=== PATIENT | male | born 1995 | race Caucasian/White ===

== ENCOUNTER 2020-01-09 13:53 | Emergency (ER) | payer OTHER ==
[2020-01-09 14:01] VITALS: BP 131/85; RESP 18; TEMP 98
[2020-01-09] MEDS ORDERED: LIDOCAINE 1% INJ 10MG/ML (20 ML MDV) SQ STA (14:15)
[2020-01-09] MEDS ORDERED: DIPH,PERTUS(ACELL)TETVAC-LF 0.5 ML VIAL IM ONE (14:15)
[2020-01-09] MEDS ORDERED: AMOXIC-POT CLAV 875MG STARTER PACK 2 TAB BTL PO STA (14:16)
--- NOTE | 2020-01-09 14:53 | ED ---
General Adult HPI - General Chief complaint: Wound/Laceration Stated complaint: dog bite Source: patient, RN notes reviewed Mode of arrival: ambulatory Limitations: no limitations - History of Present Illness Initial comments: 24-year-old male presents to the emergency department with multiple complaints. Patient states his dogs were fighting and he was trying to break them up. States he got bit on the left hand. Denies any difficulty moving fingers. Patient states that he was trying to separate the dogs using a plastic slide and he accidentally hit his face on the slide. He may have lost consciouness although he is unsure. He did not injure his teeth but did have a through and through lower lip laceration. He also hit his right eye. Denies any pain within the globe or any visual changes. Tetanus not up-to-date. Dogs were immunized for rabies.Patient has no other complaints at this time including shortness of breath, chest pain, abdominal pain, nausea or vomiting, headache, or visual changes. - Related Data Home Medications Medication Instructions Recorded Confirmed Albuterol Inhaler [Ventolin Hfa 2 puff INHALATION RT-BID 11/23/17 11/23/17 Inhaler] Previous Rx's Medication Instructions Recorded Ondansetron [Zofran ODT] 4 mg PO Q8HR PRN #10 tab 11/23/17 Amoxicillin/Potassium Clav 1 tab PO Q12HR #20 tab 01/09/20 [Augmentin 875-125 Tablet] Allergies Allergy/AdvReac Type Severity Reaction Status Date / Time No Known Allergies Allergy Verified 01/09/20 14:00 Review of Systems ROS Statement: Those systems with pertinent positive or pertinent negative responses have been documented in the HPI. ROS Other: All systems not noted in ROS Statement are negative. Past Medical History Past Medical History: No Reported History History of Any Multi-Drug Resistant Organisms: None Reported Past Surgical History: Tonsillectomy Past Psychological History: No Psychological Hx Reported Smoking Status: Current every day smoker Past Alcohol Use History: None Reported Past Drug Use History: None Reported General Exam Limitations: no limitations General appearance: alert, in no apparent distress Head exam: Present: atraumatic, normocephalic, normal inspection Eye exam: Present: PERRL, EOMI. Absent: scleral icterus, conjunctival injection, periorbital swelling (minimal R periorbital ecchymosis. patient able to open eye. globe appears within normal limits. patient denies visual changes. ) ENT exam: Present: normal exam, mucous membranes moist, TM's normal bilaterally, normal external ear exam. Absent: normal oropharynx (Patient has a 1 cm laceration on the right lower lip. This is through and through. Teeth appear unaffected.) Neck exam: Present: normal inspection, full ROM. Absent: tenderness, meningismus, lymphadenopathy Respiratory exam: Present: normal lung sounds bilaterally. Absent: respiratory distress, wheezes, rales, rhonchi, stridor Cardiovascular Exam: Present: regular rate, normal rhythm, normal heart sounds. Absent: systolic murmur, diastolic murmur, rubs, gallop, clicks Extremities exam: Present: other (Patient has 2 small lacerations noted to the dorsum of the left hand. These are superficial in nature. They are non-gaping. They dO not cross any tendon sites. Patient has full range of motion of the left hand. There is no evidence of foreign body. Radial pulses 2+.) Course Vital Signs 01/09/20 13:55 Temperature 98 F Pulse Rate 112 H Respiratory 18 Rate Blood Pressure 131/85 O2 Sat by Pulse 99 Oximetry Procedures - Laceration Laceration #1 Consent Obtained: verbal consent Indication: laceration Site: lip Size (cm): 1 Description: linear Depth: [id number] Anesthetic Used: lidocaine 1% Anesthesia Technique: nerve block Amount (mls): 2 Pre-repair: wound explored, irrigated extensively (With saline pressure irr igation) Type of Sutures: nylon (1), vicryl (1) Size of Sutures: 5-0 Number of Sutures: 2 Technique: simple, interrupted Patient Tolerated Procedure: well, no complications Medical Decision Making - Medical Decision Making 2 small superficial lacerations noted to the dorsum of the left hand from dog bite. These are small, non-gaping, no evident tendon involvement on thorough inspection. Full ROM of all digits. These were cleaned thoroughly with soap and water followed by saline pressure irrigation. No evidence for foreign body. X- ray of the left hand is negative. Patient was started on Augmentin and discussed strict return parameters including signs of infection. Tetanus is updated. Patient also cause a laceration to his lower lip when he accidentally hit himself with a slide as well as minimal right periorbital ecchymosis. He apparently may have lost consciousness although he is unsure. Laceration of lip is through and through. I did numb this with a mental block. Internal suture was applied to the right lower lip. Saline pressure irrigation was performed. Additional suture was applied to the skin layer. Patient will return in 5 days for external suture removal. Internal suture will dissolve on its own. CT brain is negative. CT orbits shows mild right periorbital swelling. There is some mild frontal scalp soft tissue swelling. He will follow up with primary xcare in 1-2 days for a recheck or return to the ER if he has any worsening symptoms. Disposition Clinical Impression: Lip laceration, Dog bite, Head injury Disposition: HOME SELF-CARE Condition: Good Instructions (If sedation given, give patient instructions): Laceration (ED), Animal Bite (ED) Additional Instructions: Take antibiotics as directed. Monitor for signs of infection of the left hand including drainage, redness, or streaking redness. Return if these occur. Re turn in 5 days for external suture removal from the lip. Otherwise follow-up with primary care. Prescriptions: Amoxicillin/Potassium Clav [Augmentin 875-125 Tablet] 1 tab PO Q12HR #20 tab Is patient prescribed a controlled substance at d/c from ED?: No Referrals: Moira Christensen MD [STAFF PHYSICIAN] - 1-2 days Time of Disposition: 15:21
--- NOTE | 2020-01-09 15:07 | CT ---
EXAMINATION TYPE: CT brain wo con DATE OF EXAM: 01/09/2020 COMPARISON: None HISTORY: Facial lacerations after injury CT DLP: 1215.4 mGycm Automated exposure control for dose reduction was used. Multiple axial sections were obtained of the brain without contrast. Ventricles have normal size. There is no mass effect nor midline shift. There is no sign of intracran ial hemorrhage. The calvarium is intact. There appears to be some mild frontal scalp soft tissue swel ling. Impression negative CT scan of the brain. Mild soft tissue swelling.
--- NOTE | 2020-01-09 15:08 | XR ---
EXAMINATION TYPE: XR hand complete LT DATE OF EXAM: 01/09/2020 COMPARISON: NONE HISTORY: Pain TECHNIQUE: 3 views FINDINGS: Metacarpals appear intact. I see no fracture nor dislocation. Joint spaces are normal. IMPRESSION: Negative left hand exam.
--- NOTE | 2020-01-09 15:24 | CT ---
EXAMINATION TYPE: CT orbits wo con DATE OF EXAM: 01/09/2020 COMPARISON: HISTORY: Facial lacerations after injury CT DLP: 1215.4 mGycm Automated exposure control for dose reduction was used. Multiple axial sections were obtained from the top of the frontal sinuses to the top of the maxilla w ithout contrast. Nasal bone appears intact. There is fairly normal aeration of the visualized paranasal sinuses. There is no evidence of a blowout fracture. There is minimal mucosal thickening in the maxillary sinuses. There is no evidence of retro-orbital mass. The bony orbits are intact. Temporal bones appear normal. There is soft tissue swelling over the lower aspect of the frontal bone extending to the right perior bital region. There is no soft tissue air. IMPRESSION: Mild frontal and right side periorbital soft tissue swelling. No fracture seen. Minimal maxillary sinus mucosal thickening.
[2020-01-09 15:40] VITALS: PULSE 95
== END 2020-01-09 15:40 | disposition home or self-care (01) ==
LOC: EC 13:53
DX: S01.511A Laceration without foreign body of lip, initial encounter (principal); S61.452A Open bite of left hand, initial encounter; S00.11XA Contusion of right eyelid and periocular area, initial encounter; F17.200 Nicotine dependence, unspecified, uncomplicated; Z23 Encounter for immunization; W54.0XXA Bitten by dog, initial encounter; W22.8XXA Striking against or struck by other objects, initial encounter; Y93.89 Activity, other specified; Y92.89 Other specified places as the place of occurrence of the external cause
CPT/HCPCS: 73130; 70450; 70480; 90715; 99283; 12011; 90471; J2001

== ENCOUNTER 2020-08-25 19:16 | Emergency (ER) | payer OTHER ==
[2020-08-25] MEDS ORDERED: ACETAMINOPHEN TAB 500 MG TAB PO STA (20:46)
[2020-08-25] MEDS ORDERED: IBUPROFEN 600 MG STARTER PACK 4 TAB BTL PO STA (20:46)
--- NOTE | 2020-08-25 21:26 | XR ---
EXAMINATION TYPE: XR chest 1V DATE OF EXAM: 08/25/2020 COMPARISON: NONE HISTORY: Cough TECHNIQUE: Single view FINDINGS: Heart and mediastinum are normal. Lungs are clear. Diaphragm is normal. Bony thorax appears normal. IMPRESSION: Normal chest.
--- NOTE | 2020-08-25 21:33 | ED ---
URI HPI - General Source: patient, RN notes reviewed, old records reviewed Mode of arrival: ambulatory Limitations: no limitations <Leonela Ibrahim - Last Filed: 08/26/20 10:47> <Tanesha Orellana - Last Filed: 09/02/20 00:33> - General Chief Complaint: Upper Respiratory Infection Stated Complaint: uri Time Seen by Provider: 08/25/20 20:21 - History of Present Illness Initial Comments: 25 year old male with 3 weeks of cough, congestion and runny nose. Pt arrives with fever today. Pt reports that he is a smoker and reports no significant productive cough. Pt denies abdominal pain, nausea, or vomiting. Reports possible exposure to covid. (Leonela Ibrahim) - Related Data Home Medications Medication Instructions Recorded Confirmed Albuterol Inhaler (Mhu) [Ventolin 2 puff INHALATION RT-BID 11/23/17 11/23/17 Hfa Inhaler] Previous Rx's Medication Instructions Recorded Ondansetron [Zofran ODT] 4 mg PO Q8HR PRN #10 tab 11/23/17 Amoxicillin/Potassium Clav 1 tab PO Q12HR #20 tab 01/09/20 [Augmentin 875-125 Tablet] Albuterol Inhaler [Ventolin Hfa 1 puff INHALATION TID #1 inhaler 08/25/20 Inhaler] Azithromycin [Zithromax] 0 mg PO DIRECTED #6 tab 08/25/20 methylPREDNISolone Dose Pack 4 mg PO DIRECTED #21 package 08/25/20 [Medrol Dose Pack] Allergies Allergy/AdvReac Type Severity Reaction Status Date / Time No Known Allergies Allergy Verified 08/25/20 19:32 Review of Systems ROS Other: All systems not noted in ROS Statement are negative. <Leonela Ibrahim - Last Filed: 08/26/20 10:47> ROS Other: All systems not noted in ROS Statement are negative. <Tanesha Orellana - Last Filed: 09/02/20 00:33> ROS Statement: Those systems with pertinent positive or pertinent negative responses have been documented in the HPI. Past Medical History Past Medical History: No Reported History History of Any Multi-Drug Resistant Organisms: None Reported Past Surgical History: Tonsillectomy Past Psychological History: No Psychological Hx Reported Smoking Status: Current every day smoker, Vaper Past Alcohol Use History: None Reported Past Drug Use History: Marijuana <Norahsonymary louLeonela - Last Filed: 08/26/20 10:47> General Exam Limitations: no limitations General appearance: alert, in no apparent distress Head exam: Present: atraumatic, normocephalic, normal inspection Eye exam: Present: normal appearance, PERRL, EOMI. Absent: scleral icterus, conjunctival injection, periorbital swelling ENT exam: Present: normal exam, mucous membranes moist Neck exam: Present: normal inspection. Absent: tenderness, meningismus, lymphadenopathy Respiratory exam: Present: normal lung sounds bilaterally, wheezes (minimal). Absent: respiratory distress, rales, rhonchi, stridor Cardiovascular Exam: Present: regular rate, normal rhythm, normal heart sounds. Absent: systolic murmur, diastolic murmur, rubs, gallop, clicks Neurological exam: Present: alert, oriented X3, CN II-XII intact Psychiatric exam: Present: normal affect, normal mood Skin exam: Present: warm, dry, intact, normal color. Absent: rash <Leonela Ibrahim - Last Filed: 08/26/20 10:47> - General Exam Comments Initial Comments: 25year old male, well appearing. no distress. (Leonela Ibrahim) Course Vital Signs 08/25/20 08/25/20 19:28 21:52 Temperature 100.0 F H 98.2 F Pulse Rate 85 87 Respiratory 20 18 Rate Blood Pressure 154/88 145/79 O2 Sat by Pulse 99 99 Oximetry Medical Decision Making - Radiology Data Radiology results: report reviewed <Asmita Ibrahimily - Last Filed: 08/26/20 10:47> <Tanesha Orellana - Last Filed: 09/02/20 00:33> - Medical Decision Making 25 year old male with cough, fever and congestion intermittent for 3 weeks. Pt is smoker. Discussed Rapid Covid is negative. Discussed CXR shows no pneumonia. Pt has bronchitis and due to length of symptoms will put pt on z-pack for atypical bacteria. Discussed return parameters. (Leonela Ibrahim) I was available for consultation in the emergency department. The history and physical exam were done by the midlevel provider. I was consulted for this patients care. I reviewed the case with the midlevel provider and based on their presentation of the patient, I agree with the assessment, medical decision making and plan of care as documented. Chart was dictated using [employer] dictation software. Attempts were made to correct any dictation errors however some typographical errors may persist. Patient was seen during a national state of emergency due to the Covid-19 pandemic. (Tanesha Orellana) - Lab Data Lab Results 08/25/20 Range/Units 21:03 Coronavirus (PCR) Not Detected (Not Detectd) - Radiology Data Normal CXR. (Leonela Ibrahim) Disposition Is patient prescribed a controlled substance at d/c from ED?: No Time of Disposition: 21:30 <Leonela Ibrahim - Last Filed: 08/26/20 10:47> <Tanesha Orellana - Last Filed: 09/02/20 00:33> Clinical Impression: URI (upper respiratory infection) Disposition: HOME SELF-CARE Condition: Good Instructions (If sedation given, give patient instructions): Upper Respiratory Infection (ED) Additional Instructions: Patient continue Motrin Tylenol for fever and pain. Take medications as prescribed. Follow-up with primary care doctor symptoms continue to persist or worsen. Prescriptions: methylPREDNISolone Dose Pack [Medrol Dose Pack] 4 mg PO DIRECTED #21 package Albuterol Inhaler [Ventolin Hfa Inhaler] 1 puff INHALATION TID #1 inhaler Azithromycin [Zithromax] 0 mg PO DIRECTED #6 tab Referrals: None,Stated [Primary Care Provider] - 1-2 days Ciro Yeh MD [REFERRING] - 1-2 days
[2020-08-25] MEDS ORDERED: AZITHROMYCIN 500 MG TAB PO STA (21:38)
[2020-08-25] MEDS ORDERED: predniSONE 50 MG TAB PO STA (21:38)
[2020-08-25 21:54] VITALS: BP 145/79; PULSE 87; RESP 18; TEMP 98.2
== END 2020-08-25 21:53 | disposition home or self-care (01) ==
LOC: EC 19:16
DX: J06.9 Acute upper respiratory infection, unspecified (principal); F17.290 Nicotine dependence, other tobacco product, uncomplicated; Z90.89 Acquired absence of other organs; Z20.828 Contact with and (suspected) exposure to other viral communicable diseases
CPT/HCPCS: 87635; 71045; 99284; J7512

== ENCOUNTER 2020-09-19 22:22 | Emergency (ER) | payer OTHER ==
[2020-09-19 22:27] VITALS: TEMP 99.2
[2020-09-19] MEDS ORDERED: KETOROLAC 15 MG/ML 1 ML VIAL IVP STA (22:41)
[2020-09-19] MEDS ORDERED: SODIUM CHLORIDE 0.9% 1,000 ML IV ONE (22:41)
--- NOTE | 2020-09-19 22:45 | ED ---
General Adult HPI - General Chief complaint: Chest Pain Stated complaint: Revisit Chest Pain Time Seen by Provider: 09/19/20 22:31 Source: patient Mode of arrival: ambulatory Limitations: no limitations - History of Present Illness Initial comments: 25-year-old male patient presents to the emergency department today for evaluation of left-sided chest pain. Patient states that he was seen and evaluated on 08/25/2020 for similar type symptoms. States he was given azithromycin, steroids, he did completely dosing of both of these and states she is not feeling any better. States his cough is somewhat improved. States he does still have left-sided chest pain a daily basis. States the pain is at its worse he does have left arm heaviness states he can't lift it up to drive his car. Denies any dizziness or weakness. States that his breathing is more shallow. Denies any known fever or chills. He did test negative for occult blood at the beginning of this month. Patient denies any recent rash, abdominal pain, nausea, vomiting, diarrhea, constipation, back pain, numbness, tingling, dizziness, weakness, hematuria, dysuria, urinary urgency, urinary frequency, headache, visual changes, or any other complaints. - Related Data Home Medications Medication Instructions Recorded Confirmed Albuterol Inhaler (Mhu) [Ventolin 2 puff INHALATION RT-BID 11/23/17 11/23/17 Hfa Inhaler] Previous Rx's Medication Instructions Recorded Ondansetron [Zofran ODT] 4 mg PO Q8HR PRN #10 tab 11/23/17 Amoxicillin/Potassium Clav 1 tab PO Q12HR #20 tab 01/09/20 [Augmentin 875-125 Tablet] Albuterol Inhaler [Ventolin Hfa 1 puff INHALATION TID #1 inhaler 08/25/20 Inhaler] Azithromycin [Zithromax] 0 mg PO DIRECTED #6 tab 08/25/20 methylPREDNISolone Dose Pack 4 mg PO DIRECTED #21 package 08/25/20 [Medrol Dose Pack] Allergies Allergy/AdvReac Type Severity Reaction Status Date / Time No Known Allergies Allergy Verified 09/19/20 22:27 Review of Systems ROS Statement: Those systems with pertinent positive or pertinent negative responses have been documented in the HPI. ROS Other: All systems not noted in ROS Statement are negative. Past Medical History Past Medical History: No Reported History History of Any Multi-Drug Resistant Organisms: None Reported Past Surgical History: Tonsillectomy Past Psychological History: No Psychological Hx Reported Smoking Status: Vaper Past Alcohol Use History: None Reported Past Drug Use History: Marijuana General Exam Limitations: no limitations General appearance: alert, in no apparent distress, other (This is a well- developed, well-nourished, adult male patient in no acute distress. Vital signs upon presentation are temperature 99.2F, pulse 89, respirations 18, blood pressure 146/91, pulse ox 99% on room air.) ENT exam: Present: normal exam, normal oropharynx, mucous membranes moist Respiratory exam: Present: normal lung sounds bilaterally. Absent: respiratory distress, wheezes, rales, rhonchi, stridor Cardiovascular Exam: Present: regular rate, normal rhythm, normal heart sounds. Absent: systolic murmur, diastolic murmur, rubs, gallop, clicks GI/Abdominal exam: Present: soft, normal bowel sounds. Absent: distended, tenderness, guarding, rebound, rigid Neurological exam: Present: alert, oriented X3, CN II-XII intact Psychiatric exam: Present: normal affect, normal mood Skin exam: Present: warm, dry, intact, normal color. Absent: rash Course Vital Signs 09/19/20 22:25 Temperature 99.2 F Pulse Rate 89 Respiratory 18 Rate Blood Pressure 146/91 O2 Sat by Pulse 99 Oximetry EKG Findings - EKG Comments: EKG Findings:: EKG obtained at 2235 shows normal sinus rhythm with sinus arrhythmia, there is evidence for early re-pole. Ventricular rate is 79, UT interval 142, QRS duration 84, QT 368, QTC 421. No evidence of ST elevation or depression. Medical Decision Making - Medical Decision Making 25-year-old male patient presents to the emergency department today for evaluation of left-sided chest pain, arm heaviness, and shortness of breath. Physical examination reveals clear equal lung sounds. His neurologically intact with no focal deficits. Labs reviewed and revealed normal white blood cell count. Normal troponin. Normal d-dimer. Chest x-ray showed no acute cardi opulmonary process. EKG was normal. I did discuss findings and results with the patient. Be discharged follow up with his primary care physician for recheck in 1-2 days. Return parameters were discussed in detail. He verbalizes understanding and agrees with this plan. - Lab Data Result diagrams: 09/19/20 22:41 09/19/20 22:41 Lab Results 09/19/20 09/19/20 09/19/20 Range/Units 22:41 22:41 22:41 WBC 12.0 H (3.8-10.6) k/uL RBC 5.30 (4.30-5.90) m/uL Hgb 16.4 (13.0-17.5) gm/dL Hct 48.2 (39.0-53.0) % MCV 91.0 (80.0-100.0) fL MCH 30.9 (25.0-35.0) pg MCHC 34.0 (31.0-37.0) g/dL RDW 12.1 (11.5-15.5) % Plt Count 251 (150-450) k/uL MPV 7.0 Neutrophils % 61 % Lymphocytes % 30 % Monocytes % 5 % Eosinophils % 2 % Basophils % 1 % Neutrophils # 7.3 (1.3-7.7) k/uL Lymphocytes # 3.6 (1.0-4.8) k/uL Monocytes # 0.6 (0-1.0) k/uL Eosinophils # 0.2 (0-0.7) k/uL Basophils # 0.1 (0-0.2) k/uL D-Dimer <0.17 (<0.60) mg/L FEU Sodium 137 (137-145) mmol/L Potassium 4.4 (3.5-5.1) mmol/L Chloride 105 (98-107) mmol/L Carbon Dioxide 24 (22-30) mmol/L Anion Gap 8 mmol/L BUN 14 (9-20) mg/dL Creatinine 0.91 (0.66-1.25) mg/dL Est GFR (CKD-EPI)AfAm >90 (>60 ml/min/1.73 sqM) Est GFR (CKD-EPI)NonAf >90 (>60 ml/min/1.73 sqM) Glucose 96 (74-99) mg/dL Calcium 9.7 (8.4-10.2) mg/dL Total Bilirubin 0.4 (0.2-1.3) mg/dL AST 29 (17-59) U/L ALT 20 (4-49) U/L Alkaline Phosphatase 62 (38-126) U/L Troponin I (0.000-0.034) ng/mL Total Protein 7.4 (6.3-8.2) g/dL Albumin 4.8 (3.5-5.0) g/dL 09/19/20 Range/Units 22:41 WBC (3.8-10.6) k/uL RBC (4.30-5.90) m/uL Hgb (13.0-17.5) gm/dL Hct (39.0-53.0) % MCV (80.0-100.0) fL MCH (25.0-35.0) pg MCHC (31.0-37.0) g/dL RDW (11.5-15.5) % Plt Count (150-450) k/uL MPV Neutrophils % % Lymphocytes % % Monocytes % % Eosinophils % % Basophils % % Neutrophils # (1.3-7.7) k/uL Lymphocytes # (1.0-4.8) k/uL Monocytes # (0-1.0) k/uL Eosinophils # (0-0.7) k/uL Basophils # (0-0.2) k/uL D-Dimer (<0.60) mg/L FEU Sodium (137-145) mmol/L Potassium (3.5-5.1) mmol/L Chloride (98-107) mmol/L Carbon Dioxide (22-30) mmol/L Anion Gap mmol/L BUN (9-20) mg/dL Creatinine (0.66-1.25) mg/dL Est GFR (CKD-EPI)AfAm (>60 ml/min/1.73 sqM) Est GFR (CKD-EPI)NonAf (>60 ml/min/1.73 sqM) Glucose (74-99) mg/dL Calcium (8.4-10.2) mg/dL Total Bilirubin (0.2-1.3) mg/dL AST (17-59) U/L ALT (4-49) U/L Alkaline Phosphatase (38-126) U/L Troponin I <0.012 (0.000-0.034) ng/mL Total Protein (6.3-8.2) g/dL Albumin (3.5-5.0) g/dL - Radiology Data Radiology results: report reviewed, image reviewed Two-view x-ray of the chest is obtained. Report was reviewed in its entirety. Impression by Dr. Dodd shows normal chest. No change. Disposition Clinical Impression: Chest pain, Shortness of breath Disposition: HOME SELF-CARE Condition: Good Instructions (If sedation given, give patient instructions): Chest Pain (ED), Shortness of Breath (ED) Additional Instructions: Follow-up through primary care physician for recheck in 1-2 days. Return to the emergency department immediately for any new, worsening, or concerning symptoms. Is patient prescribed a controlled substance at d/c from ED?: No Referrals: Ciro Yeh MD [REFERRING] - 1-2 days Time of Disposition: 23:46
[2020-09-19 23:12] LABS: Basophils # (A) 0.1 k/uL (0-0.2); Basophils % (A) 1 %; Eosinophils # (A) 0.2 k/uL (0-0.7); Eosinophils % (A) 2 %; HCT 48.2 % (39.0-53.0); HGB 16.4 gm/dL (13.0-17.5); Lymphocytes # (A) 3.6 k/uL (1.0-4.8); Lymphocytes % (A) 30 %; MCH 30.9 pg (25.0-35.0); Monocytes # (A) 0.6 k/uL (0-1.0); Monocytes % (A) 5 %; Neutrophils # (A) 7.3 k/uL (1.3-7.7); Neutrophils % (A) 61 %; Platelet Count 251 k/uL (150-450); RDW 12.1 % (11.5-15.5)
[2020-09-19 23:20] LABS: ALT 20 U/L (4-49); AST 29 U/L (17-59); African American GFR (CKD) >90 (>60 ml/min/1.73 sqM); Albumin 4.8 g/dL (3.5-5.0); Alkaline Phosphatase 62 U/L (38-126); Anion Gap 8 mmol/L; Blood Urea Nitrogen 14 mg/dL (9-20); Calcium 9.7 mg/dL (8.4-10.2); Carbon Dioxide 24 mmol/L (22-30); Chloride 105 mmol/L (98-107); Glucose 96 mg/dL (74-99); Non-African American GFR(CKD) >90 (>60 ml/min/1.73 sqM); Potassium 4.4 mmol/L (3.5-5.1); Sodium 137 mmol/L (137-145); Total Bilirubin 0.4 mg/dL (0.2-1.3); Total Protein 7.4 g/dL (6.3-8.2)
--- NOTE | 2020-09-19 23:20 | XR ---
EXAMINATION TYPE: XR chest 2V DATE OF EXAM: 09/19/2020 COMPARISON: 08/25/2020 HISTORY: Chest pain TECHNIQUE: 2 views FINDINGS: Heart and mediastinum are normal. Lungs are clear. Diaphragm is normal. Bony thorax appears normal. IMPRESSION: Normal chest. No change.
[2020-09-19 23:53] VITALS: BP 121/76; PULSE 58; RESP 16
== END 2020-09-19 23:55 | disposition home or self-care (01) ==
LOC: EC 22:22
DX: R07.9 Chest pain, unspecified (principal); R06.02 Shortness of breath; F17.290 Nicotine dependence, other tobacco product, uncomplicated
CPT/HCPCS: 36415; 93005; 85379; 80053; 84484; 85025; 71046; 99285; 96374; J1885

== ENCOUNTER 2021-06-15 08:51 | Emergency (ER) | payer OTHER ==
[2021-06-15 08:56] VITALS: TEMP 98.1
--- NOTE | 2021-06-15 09:10 | ED ---
Chest Pain HPI - General Chief Complaint: Chest Pain Stated Complaint: Chest pain Time Seen by Provider: 06/15/21 09:04 Source: patient, RN notes reviewed Mode of arrival: ambulatory Limitations: no limitations - History of Present Illness Initial Comments: This is a 25-year-old male presents emergency Department chief complaint of left-sided chest wall pain. 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 Patient states she is at work throwing some trash when he started having pain in his muscle. Patient states that his work advised him come emergency department. Patient states otherwise he would not be here. Denies any current symptoms. He states it is only with movement denies any shortness of breath no fevers chills no cough or cold like symptoms. - Related Data Home Medications Medication Instructions Recorded Confirmed Ibuprofen [Motrin Ib] 800 mg PO Q8H PRN 06/15/21 06/15/21 Allergies Allergy/AdvReac Type Severity Reaction Status Date / Time No Known Allergies Allergy Verified 06/15/21 09:24 Review of Systems ROS Statement: Those systems with pertinent positive or pertinent negative responses have been documented in the HPI. ROS Other: All systems not noted in ROS Statement are negative. EKG Findings - EKG Comments: EKG Findings:: EKG performed at 8:40 normal sinus rhythm rate of 73 [place] 184 QRS 98 QT/QTC 384/423 Past Medical History Past Medical History: No Reported History History of Any Multi-Drug Resistant Organisms: None Reported Past Surgical History: Tonsillectomy Additional Past Surgical History / Comment(s): Tumor in his chest. Past Psychological History: No Psychological Hx Reported Smoking Status: Vaper Past Alcohol Use History: None Reported Past Drug Use History: Marijuana General Exam Limitations: no limitations General appearance: alert, in no apparent distress Head exam: Present: atraumatic, normocephalic, normal inspection Eye exam: Present: normal appearance, PERRL, EOMI. Absent: scleral icterus, conjunctival injection, periorbital swelling Neck exam: Present: normal inspection, full ROM. Absent: tenderness, meningismus, lymphadenopathy Respiratory exam: Present: normal lung sounds bilaterally, chest wall tenderness. Absent: respiratory distress, wheezes, rales, rhonchi, stridor Cardiovascular Exam: Present: regular rate, normal rhythm, normal heart sounds. Absent: systolic murmur, diastolic murmur, rubs, gallop, clicks GI/Abdominal exam: Present: soft, normal bowel sounds. Absent: distended, tenderness, guarding, rebound, rigid Neurological exam: Present: alert, oriented X3, CN II-XII intact Course Vital Signs 06/15/21 08:53 Temperature 98.1 F Pulse Rate 84 Respiratory 20 Rate Blood Pressure 132/75 O2 Sat by Pulse 99 Oximetry Chest Pain MDM - MDM 25-year-old male presented for chest wall pain. Patient is reproducible chest wall pain. He's had this in the past he is asymptomatic time EKG and neck strain unremarkable. Disposition Clinical Impression: Chest wall pain Disposition: HOME SELF-CARE Condition: Stable Instructions (If sedation given, give patient instructions): Chest Wall Pain (ED) Additional Instructions: Please return to the Emergency Department if symptoms worsen or any other concerns. Is patient prescribed a controlled substance at d/c from ED?: No Referrals: Marilia Peter MD [Primary Care Provider] - 1-2 days Time of Disposition: 09:53
--- NOTE | 2021-06-15 09:37 | XR ---
EXAMINATION TYPE: XR chest 2V DATE OF EXAM: 06/15/2021 COMPARISON: 09/19/2020 TECHNIQUE: PA and lateral views submitted. HISTORY: Pain FINDINGS: The lungs are clear and there is no pneumothorax, pleural effusion, or focal pneumonia. Heart size normal. No overt failure. IMPRESSION: 1. No acute process.
[2021-06-15 10:09] VITALS: BP 127/82; PULSE 71; RESP 18
== END 2021-06-15 10:08 | disposition home or self-care (01) ==
LOC: EC 08:51
DX: R07.89 Other chest pain (principal); F17.290 Nicotine dependence, other tobacco product, uncomplicated; F12.90 Cannabis use, unspecified, uncomplicated
CPT/HCPCS: 71046; 93005; 99285

== ENCOUNTER 2021-10-02 06:22 | Emergency (ER) | payer OTHER ==
[2021-10-02 06:38] VITALS: BP 120/82; PULSE 82; RESP 18; TEMP 98.9
--- NOTE | 2021-10-02 07:07 | ED ---
General Adult HPI - General Chief complaint: Upper Respiratory Infection Stated complaint: Chest Pressure, Covid+ Time Seen by Provider: 10/02/21 06:39 Source: patient, RN notes reviewed Mode of arrival: ambulatory Limitations: no limitations - History of Present Illness Initial comments: Patient is a 26-year-old male presented to the emergency room today with a chief complaint of cough, congestion, body aches over the last 5 days. Patient does admit that he had a positive COVID-19 test. Patient denies any shortness of breath. He denies any other complaints or any other symptoms at this time. Patient denies any recent fever, chills, shortness of breath, chest pain, back pain, abdominal pain, nausea or vomiting, numbness or tingling, dysuria or hematuria, constipation or diarrhea, visual changes, or any other complaints. - Related Data Home Medications Medication Instructions Recorded Confirmed Ibuprofen [Motrin Ib] 800 mg PO Q8H PRN 06/15/21 06/15/21 Allergies Allergy/AdvReac Type Severity Reaction Status Date / Time No Known Allergies Allergy Verified 10/02/21 06:37 Review of Systems ROS Statement: Those systems with pertinent positive or pertinent negative responses have been documented in the HPI. ROS Other: All systems not noted in ROS Statement are negative. 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 Past Psychological History: No Psychological Hx Reported Smoking Status: Current every day smoker, Vaper Past Alcohol Use History: Rare Past Drug Use History: Marijuana General Exam - General Exam Comments Initial Comments: General: The patient is awake and alert, in no distress, and does not appear acutely ill. Eye: Pupils are equal, round and reactive to light, extra-ocular movements are intact. There is normal conjunctiva bilaterally. No signs of icterus. Ears, nose, mouth and throat: There are moist mucous membranes and no oral lesions. Neck: The neck is supple, there is no tenderness or JVD. Respiratory: Lungs are clear to auscultation, respirations are non-labored, breath sounds are equal. No wheezes, stridor, rales, or rhonchi. Musculoskeletal: Normal ROM, no tenderness. Strength 5/5. Sensation intact. Pulses equal bilaterally 2+. Neurological: A&O x 3. CN II-XII intact, There are no obvious motor or sensory deficits. Coordination appears grossly intact. Speech is normal. Skin: Skin is warm and dry and no rashes or lesions are noted. Psychiatric: Cooperative, appropriate mood & affect, normal judgment. Limitations: no limitations Course Vital Signs 10/02/21 06:34 Temperature 98.9 F Pulse Rate 82 Respiratory 18 Rate Blood Pressure 120/82 O2 Sat by Pulse 99 Oximetry Medical Decision Making - Medical Decision Making Patient's vitals are stable here in emergency room. He is diagnosed COVID-19 w ith a previous positive test. Vitals have been stable here in emergency room. After pulse oximeter 99%. Was discussed with patient about myocardial antibodies as he does meet because of PMI. Patient has declined. Patient will be discharged home is advised return to the emergency room symptoms increase worsen or for any other concerns. He states understanding and is currently. Disposition Clinical Impression: COVID-19 Disposition: HOME SELF-CARE Condition: Good Instructions (If sedation given, give patient instructions): Coronavirus Disease 2019 (COVID-19) Additional Instructions: Please continue Tylenol/ibuprofen for pain/ fever Control. Follow up with family doctor return here to the emergency room symptoms increase worsen or for any other concerns. Is patient prescribed a controlled substance at d/c from ED?: No Referrals: Marilia Peter MD [Primary Care Provider] - 1-2 days Time of Disposition: 07:15
== END 2021-10-02 07:49 | disposition home or self-care (01) ==
LOC: EC 06:22
DX: U07.1 COVID-19 (principal); F17.200 Nicotine dependence, unspecified, uncomplicated; F12.90 Cannabis use, unspecified, uncomplicated
CPT/HCPCS: 99283

== ENCOUNTER 2021-11-05 15:55 | Emergency (ER) | payer OTHER ==
[2021-11-05 16:47] VITALS: BP 101/65; PULSE 60; RESP 20; TEMP 98
[2021-11-05 17:06] LABS: Amorphous Sediment,Urine Rare /hpf; Appearance,Urine Cloudy (Clear); Bilirubin,Urine Negative (Negative); Blood,Urine Negative (Negative); Color,Urine Light Yellow; Glucose,Urine (UA) Negative (Negative); Ketones,Urine Negative (Negative); Leukocyte Esterase,Urine Small (Negative); Mucus,Urine Rare /hpf; Nitrite,Urine Negative (Negative); PH, Urine 7.5 (5.0-8.0); Protein,Urine Negative (Negative); Specific Gravity,Urine 1.008 (1.001-1.035); Urobilinogen,Urine <2.0 mg/dL (<2.0); WBC,Urine 10 /hpf (0-5)
--- NOTE | 2021-11-05 17:24 | XR ---
EXAMINATION TYPE: XR KUB DATE OF EXAM: 11/05/2021 COMPARISON: 09/23/2014 HISTORY: Abdominal pain TECHNIQUE: 2 view FINDINGS: 2 views upright were obtained and show no sign of intestinal obstruction or pneumoperitoneu m. Fecal pattern is normal. There is no evidence of a mass. Lung bases are clear. There are no pathol ogic calcifications. IMPRESSION: Nonacute abdomen. No change.
[2021-11-05 17:44] LABS: Basophils % (A) 1 %; Eosinophils # (A) 0.1 k/uL (0-0.7); Eosinophils % (A) 2 %; HCT 48.7 % (39.0-53.0); HGB 16.4 gm/dL (13.0-17.5); Lymphocytes # (A) 1.8 k/uL (1.0-4.8); Lymphocytes % (A) 29 %; MCH 31.7 pg (25.0-35.0); MCHC 33.6 g/dL (31.0-37.0); MCV 94.3 fL (80.0-100.0); Mean Platelet Volume 7.2; Monocytes # (A) 0.4 k/uL (0-1.0); Monocytes % (A) 6 %; Neutrophils # (A) 3.9 k/uL (1.3-7.7); Neutrophils % (A) 61 %; Platelet Count 232 k/uL (150-450); RBC 5.16 m/uL (4.30-5.90); WBC 6.4 k/uL (3.8-10.6)
[2021-11-05 17:51] LABS: ALT 29 U/L (4-49); AST 33 U/L (17-59); African American GFR (CKD) >90 (>60 ml/min/1.73 sqM); Albumin 4.2 g/dL (3.5-5.0); Alkaline Phosphatase 65 U/L (38-126); Amylase 157 U/L (30-110); Anion Gap 6 mmol/L; Blood Urea Nitrogen 10 mg/dL (9-20); Calcium 9.2 mg/dL (8.4-10.2); Carbon Dioxide 28 mmol/L (22-30); Chloride 106 mmol/L (98-107); Glucose 94 mg/dL (74-99); Lipase 345 U/L (23-300); Non-African American GFR(CKD) >90 (>60 ml/min/1.73 sqM); Potassium 4.4 mmol/L (3.5-5.1); Sodium 140 mmol/L (137-145); Total Bilirubin 0.3 mg/dL (0.2-1.3); Total Protein 6.6 g/dL (6.3-8.2)
[2021-11-05] MEDS ORDERED: cefTRIAXone 250 MG VIAL IM STA (19:15)
[2021-11-05] MEDS ORDERED: DOXYCYCLINE 100 MG CAP PO STA (19:16)
[2021-11-05] MEDS ORDERED: metroNIDAZOLE 500 MG TAB PO STA (19:27)
--- NOTE | 2021-11-05 19:27 | ED ---
General Adult HPI - General Chief complaint: Abdominal Pain Stated complaint: Abdominal Pain Time Seen by Provider: 11/05/21 18:53 Source: patient, RN notes reviewed, old records reviewed Mode of arrival: ambulatory Limitations: no limitations - History of Present Illness Initial comments: Patient is a 26-year-old male with past medical history remarkable for marijuana use who presents with a Department complaining of lower abdominal pain. States is been on-and-off again for 3-4 weeks. Describes it as an achy, pressure-like sensation that we will migrate around his lower abdomen. It is not associated with any specific activity or movement. Denies any dysuria, hematuria. Denies any changes in stooling, or bloody stools. Denies any nausea or vomiting. Denies any testicular pain. States he does have a history of unprotected sex over the last few weeks to months. It is possible he has an STD. Denies any testicular pain, urethral discharge. Denies any lesions on his penis. His no history of STDs. His no other acute complaints at this time. Workup was started in triage and I evaluated the patient when he was placed in a room. De nies any chest pain, now presents for symptoms, fevers, chills. Has no other acute complaints at this time.Denies any current abdominal pain. - Related Data Home Medications Medication Instructions Recorded Confirmed Ibuprofen [Motrin Ib] 800 mg PO Q8H PRN 06/15/21 06/15/21 Previous Rx's Medication Instructions Recorded Doxycycline Hyclate 100 mg PO BID 7 Days #14 tab 11/05/21 Allergies Allergy/AdvReac Type Severity Reaction Status Date / Time No Known Allergies Allergy Verified 11/05/21 16:45 Review of Systems ROS Statement: Those systems with pertinent positive or pertinent negative responses have been documented in the HPI. Review of Systems: CONST: Denies fever EYES: Denies blurry vision ENT: Denies nasal congestion C/V: Denies Chest pain RESP: Denies shortness of breath GI: Denies abdominal pain : Denies dysuria SKIN: Denies rash. MSK: Denies joint pain. NEURO: Denies headache ROS Other: All systems not noted in ROS Statement are negative. 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 Past Psychological History: No Psychological Hx Reported Smoking Status: Current every day smoker, Vaper Past Alcohol Use History: Rare Past Drug Use History: None Reported, Marijuana General Exam - General Exam Comments Initial Comments: General: Appears in no acute distress. HEAD: Normal with no signs of head trauma. EYES: PERRLA, EOMI, conjunctiva normal, no discharge. ENT: Hearing grossly intact, normal oropharynx. RESPIRATORY: Clear breath sounds bilaterally. No wheezes, rales, or rhonchi. C/V: Regular rate and rhythm. S1 and S2 auscultated, no edema, peripheral pulses 2+ and intact throughout ABD: Abd is soft, nontender, nondistended. There is no guarding. No peritoneal signs, no rebound tenderness. EXT: Normal range of motion, no obvious deformity SKIN: No rashes or lesions observed on exposed skin. : No penile lesions. No testicular tenderness, no urethral discharge. NEURO: Alert and oriented x4 Limitations: no limitations Course Vital Signs 11/05/21 16:45 Temperature 98.0 F Pulse Rate 60 Respiratory 20 Rate Blood Pressure 101/65 O2 Sat by Pulse 97 Oximetry Medical Decision Making - Medical Decision Making Based on the patient's presentation and physical exam, I'm concerned for possible intra-abdominal process for his current symptoms. He is currently asymptomatic. Cannot rule out the possibility of STDs at this time. Abdominal laboratory studies, urinalysis, as well as an abdominal x-ray were all ordered prior to my evaluation. There were all within normal limits except for mild lipase and amylase elevations. However he has no epigastric abdominal discomfort, all discomfort is in the lower abdomen, however he is asymptomatic at this time. Urinalysis is relatively unremarkable. There are 10 wbc's, nicole rai no nitrite. X-ray revealed no acute process. On reevaluation, patient remains is symptomatic. We did discuss the option of obtaining CT images, however as the patient is symptomatic at this time, as a relatively normal laboratory study workup, I do believe it is low yield. Currently, we decided not to obtain CT imaging at this time. He will Return if he gets worse.I did offer STD swabs which he accepted. These were obtained and sent. We'll also be empirically treated with 500 mg of Flagyl, 500 mg of IM Rocephin, as well as doxycycline 100 mg. He will be given a prescription for doxycycline 100 mg twice a day for 7 days. He was in agreement this plan. We discussed results of his laboratory studies and imaging and I recommended follow-up with PCP. He was in agreement this plan. He is tolerating oral intake, and is a symptomatic at this time. Patient will be discharged home in good condition. I will provide the patient with a prescription for doxycycline 100 mg twice a day for 7 days. I instructed the patient to follow up with their PCP in the next 3 days. . I explained that the patient should return to the emergency department if they experience any worsening symptoms. Strict return precautions were discussed with the patient. The patient expressed understanding of these instructions. I answered all questions that the patient had. The patient was di scharged home in good condition with their prescriptions and follow up information. - Lab Data Result diagrams: 11/05/21 17:32 11/05/21 17:32 Lab Results 11/05/21 11/05/21 11/05/21 Range/Units 16:51 17:32 17:32 WBC 6.4 (3.8-10.6) k/uL RBC 5.16 (4.30-5.90) m/uL Hgb 16.4 (13.0-17.5) gm/dL Hct 48.7 (39.0-53.0) % MCV 94.3 (80.0-100.0) fL MCH 31.7 (25.0-35.0) pg MCHC 33.6 (31.0-37.0) g/dL RDW 13.0 (11.5-15.5) % Plt Count 232 (150-450) k/uL MPV 7.2 Neutrophils % 61 % Lymphocytes % 29 % Monocytes % 6 % Eosinophils % 2 % Basophils % 1 % Neutrophils # 3.9 (1.3-7.7) k/uL Lymphocytes # 1.8 (1.0-4.8) k/uL Monocytes # 0.4 (0-1.0) k/uL Eosinophils # 0.1 (0-0.7) k/uL Basophils # 0.0 (0-0.2) k/uL Sodium 140 (137-145) mmol/L Potassium 4.4 (3.5-5.1) mmol/L Chloride 106 (98-107) mmol/L Carbon Dioxide 28 (22-30) mmol/L Anion Gap 6 mmol/L BUN 10 (9-20) mg/dL Creatinine 0.86 (0.66-1.25) mg/dL Est GFR (CKD-EPI)AfAm >90 (>60 ml/min/1.73 sqM) Est GFR (CKD-EPI)NonAf >90 (>60 ml/min/1.73 sqM) Glucose 94 (74-99) mg/dL Calcium 9.2 (8.4-10.2) mg/dL Total Bilirubin 0.3 (0.2-1.3) mg/dL AST 33 (17-59) U/L ALT 29 (4-49) U/L Alkaline Phosphatase 65 (38-126) U/L Total Protein 6.6 (6.3-8.2) g/dL Albumin 4.2 (3.5-5.0) g/dL Amylase 157 H (30-110) U/L Lipase 345 H (23-300) U/L Urine Color Light Yellow Urine Appearance Cloudy (Clear) Urine pH 7.5 (5.0-8.0) Ur Specific [place] 1.008 (1.001-1.035) Urine Protein Negative (Negative) Urine Glucose (UA) Negative (Negative) Urine Ketones Negative (Negative) Urine Blood Negative (Negative) Urine Nitrite Negative (Negative) Urine Bilirubin Negative (Negative) Urine Urobilinogen <2.0 (<2.0) mg/dL Ur Leukocyte Esterase Small H (Negative) Urine WBC 10 H (0-5) /hpf Amorphous Sediment Rare H (None) /hpf Urine Mucus Rare H (None) /hpf Disposition Clinical Impression: Abdominal pain, Concern about STD in male without diagnosis Disposition: HOME SELF-CARE Condition: Good Instructions (If sedation given, give patient instructions): Sexually Transmitted Diseases (ED), Condom Use (ED), Safe Sex (ED), Abdominal Pain (ED) Prescriptions: Doxycycline Hyclate 100 mg PO BID 7 Days #14 tab Is patient prescribed a controlled substance at d/c from ED?: No Referrals: Marilia Peter MD [Primary Care Provider] - 1-2 days
[2021-11-06 15:42] LABS: C. trachomatis,PCR Negative (Neg,Equiv); Chlamydia trachomatis Source Genital; N. gonorrhoeae,PCR Negative (Neg,Equiv); Neisseria Source Genital
== END 2021-11-05 19:48 | disposition home or self-care (01) ==
LOC: EC 15:55
DX: R10.30 Lower abdominal pain, unspecified (principal); F17.200 Nicotine dependence, unspecified, uncomplicated; F12.90 Cannabis use, unspecified, uncomplicated; Z72.89 Other problems related to lifestyle
CPT/HCPCS: 36415; 80053; 82150; 83690; 85025; 81001; 87491; 87591; 74018; 99284; 96372; J0696

== ENCOUNTER 2022-05-07 21:49 | Emergency (ER) | payer OTHER ==
[2022-05-07 22:14] VITALS: RESP 18; TEMP 97.9
[2022-05-07] MEDS ORDERED: PROPARACAINE 0.5% OPHTH DROPS 15 ML BTL RIGHT EYE STA (22:31)
[2022-05-07] MEDS ORDERED: FLUORESCEIN STRIPS 1 MG STRIP RIGHT EYE ONE ×2 (22:32→23:24)
--- NOTE | 2022-05-07 23:17 | ED ---
Eye Problem HPI - General Chief complaint: Eye Problems Stated complaint: Foreign object right eye Time Seen by Provider: 05/07/22 22:27 Source: patient Mode of arrival: ambulatory Limitations: no limitations - History of Present Illness Initial comments: Patient is a 26-year-old male presenting with chief complaint of right eye pain. Patient states upon waking this morning his eye was painful, swollen, watering, red. He had blurry vision throughout the day. He denies any woodworking or metal work that may cause foreign body. He denies foreign body sensation. He does wear contact lenses, he is not wearing contact lenses at this time. He denies headache, fever, chills, neck pain, discharge, pain with eye movements, nausea, vomiting. - Related Data Home Medications Medication Instructions Recorded Confirmed Ibuprofen [Motrin Ib] 800 mg PO Q8H PRN 06/15/21 06/15/21 Previous Rx's Medication Instructions Recorded Doxycycline Hyclate 100 mg PO BID 7 Days #14 tab 11/05/21 Levofloxacin 0.5% Ophth Soln 2 drop RIGHT EYE Q3-4H 5 Days #5 ml 05/08/22 [Quixin Ophth Soln] Allergies Allergy/AdvReac Type Severity Reaction Status Date / Time No Known Allergies Allergy Verified 05/07/22 22:15 Review of Systems ROS Statement: Those systems with pertinent positive or pertinent negative responses have been documented in the HPI. ROS Other: All systems not noted in ROS Statement are negative. 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 Past Psychological History: No Psychological Hx Reported Smoking Status: Current every day smoker, Vaper Past Alcohol Use History: Rare Past Drug Use History: None Reported, Marijuana General Exam Limitations: no limitations General appearance: alert, in no apparent distress Head exam: Present: atraumatic, normocephalic, normal inspection Eye exam: Present: PERRL, EOMI, conjunctival injection, periorbital swelling. Absent: scleral icterus, periorbital tenderness Expanded Eyelids: Swelling: Right Sclera/Conjunctival: Injection: Right Neck exam: Present: normal inspection Neurological exam: Present: alert, oriented X3, CN II-XII intact Psychiatric exam: Present: normal affect, normal mood Skin exam: Present: warm, dry, intact, normal color. Absent: rash Course Vital Signs 05/07/22 05/08/22 22:10 00:00 Temperature 97.9 F Pulse Rate 79 71 Respiratory 18 Rate Blood Pressure 155/100 141/85 O2 Sat by Pulse 99 Oximetry Medical Decision Making - Medical Decision Making Patient is a 26-year-old male, contact lens wearer, presenting with chief complaint of right eye redness, swelling, watering, discomfort. Started upon awakening this morning. On examination eyelids are somewhat swollen, and ice watering. Proparacaine eyedrops applied, patient reports great improvement in discomfort. There is some scleral injection. On Wood's lamp examination no obvious corneal abrasion or foreign body seen. Slit-lamp examination shows no obvious foreign body. No foreign body seen on eversion of the eyelid. Considering patient is presenting as a corneal abrasion, we will treat him as such. Patient is given levofloxacin eyedrops and instructed to follow-up with PCP and ophthalmology. Report back to ER with any new or worsening symptoms. I discussed return parameters answered all questions. Patient conveyed verbal understanding and agreed to the plan. My attending is Dr. Turner. Disposition Clinical Impression: Corneal abrasion Disposition: HOME SELF-CARE Condition: Good Instructions (If sedation given, give patient instructions): Abrasion (ED) Additional Instructions: Follow-up with PCP and ophthalmology in one to 2 days. Report back to ER with any new or worsening symptoms. Apply 2 eye drops every 4 hours to the affected eye for 5 days. Prescriptions: Levofloxacin 0.5% Ophth Soln [Quixin Ophth Soln] 2 drop RIGHT EYE Q3-4H 5 Days #5 ml Is patient prescribed a controlled substance at d/c from ED?: No Referrals: Marilia Peter MD [Primary Care Provider] - 1-2 days Sergio Garcia MD [STAFF PHYSICIAN] - 1-2 days Time of Disposition: 23:58
[2022-05-08] MEDS ORDERED: LEVOFLOXACIN 0.5% OPHTH DROPS 5 ML BTL RIGHT EYE SCH
[2022-05-08 00:25] VITALS: BP 141/85; PULSE 71
== END 2022-05-08 00:25 | disposition home or self-care (01) ==
LOC: EC 21:49
DX: S05.01XA Injury of conjunctiva and corneal abrasion without foreign body, right eye, initial encounter (principal); F17.290 Nicotine dependence, other tobacco product, uncomplicated; X58.XXXA Exposure to other specified factors, initial encounter
CPT/HCPCS: 99283

== ENCOUNTER 2023-04-10 05:25 | Emergency (ER) | payer BC, OTHER ==
[2023-04-10 05:32] VITALS: TEMP 97.5
[2023-04-10] MEDS ORDERED: ACETAMINOPHEN TAB 325 MG TAB PO STA (06:12)
--- NOTE | 2023-04-10 06:21 | ED ---
General Adult HPI - General Chief complaint: Neck Pain/Injury Stated complaint: Shooting pain all over Time Seen by Provider: 04/10/23 06:00 Source: patient, RN notes reviewed Mode of arrival: ambulatory Limitations: no limitations - History of Present Illness Initial comments: Pt is a 27 year old male presenting to the ER with a chief complaint of left sided neck, upper and lower extremity pain. Pt states the pain started on Friday,04/05/23, when he turned his head to the right quickly. He describes the pain as snappy. Since he has been experiencing upper and lower extremity pain which is exacerbated with movement. Denies parenthesis. He states he has been taking OTC Advil, tylenol, motrin, Naprosyn and salonpas with slight relief. Pt does admit to a fever of 101.2 F on Friday and chills. Denies prior or recent injuries to his neck or back. Denies bladder or bowel incontience, IV drug use, or any current medications. - Related Data Home Medications Medication Instructions Recorded Confirmed Ibuprofen [Motrin Ib] 800 mg PO Q8H PRN 06/15/21 06/15/21 Previous Rx's Medication Instructions Recorded Doxycycline Hyclate 100 mg PO BID 7 Days #14 tab 11/05/21 Levofloxacin 0.5% Ophth Soln 2 drop RIGHT EYE Q3-4H 5 Days #5 ml 05/08/22 [Quixin Ophth Soln] Cyclobenzaprine [Flexeril] 10 mg PO TID PRN #15 tab 04/10/23 Ibuprofen [Motrin] 600 mg PO Q8HR PRN #20 tab 04/10/23 Allergies Allergy/AdvReac Type Severity Reaction Status Date / Time No Known Allergies Allergy Verified 04/10/23 05:29 Review of Systems ROS Statement: Those systems with pertinent positive or pertinent negative responses have been documented in the HPI. ROS Other: All systems not noted in ROS Statement are negative. 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 Past Psychological History: No Psychological Hx Reported Smoking Status: Current every day smoker, Vaper Past Alcohol Use History: Rare Past Drug Use History: None Reported, Marijuana General Exam Limitations: no limitations General appearance: alert, in no apparent distress Neck exam: Present: normal inspection, tenderness (left trapezius ), full ROM. Absent: meningismus, lymphadenopathy Respiratory exam: Present: normal lung sounds bilaterally. Absent: respiratory distress, wheezes, rales, rhonchi, stridor Cardiovascular Exam: Present: regular rate, normal rhythm, normal heart sounds. Absent: systolic murmur, diastolic murmur, rubs, gallop, clicks Back exam: Present: normal inspection, other (negative stright leg test bilaterally ) Course Vital Signs 04/10/23 04/10/23 05:29 06:39 Temperature 97.5 F L Pulse Rate 84 65 Respiratory 16 18 Rate Blood Pressure 142/84 118/67 O2 Sat by Pulse 98 99 Oximetry Medical Decision Making - Medical Decision Making Was pt. sent in by a medical professional or institution (, PA, DOOR LINER, urgent care, hospital, or senior care...) When possible be specific @ -No Did you speak to anyone other than the patient for history (EMS, parent, family, police, friend...)? What history was obtained from this source @ -No Did you review nursing and triage notes (agree or disagree)? Why? @ -I reviewed and agree with nursing and triage notes Were old charts reviewed (outside hosp., previous admission, EMS record, old EKG, old radiological studies, urgent care reports/EKG's, senior care records)? Report findings @ -No old charts were reviewed Differential Diagnosis (chest pain, altered mental status, abdominal pain women, abdominal pain men, vaginal bleeding, weakness, fever, dyspnea, syncope, headache, dizziness, GI bleed, back pain, seizure, CVA, palpatations, mental health, musculoskeletal)? @ -Torticollis, cervical strain, muscle spasm, low back pain, low back strain] EKG interpreted by me (3pts min.). @ -None X-rays interpreted by me (1pt min.). @ -X-rays cervical spine shows loss of normal curvature, straightening no osseus lesions X-ray lumbar spine no acute fracture dislocation X-ray shoulder no acute fracture dislocation CT interpreted by me (1pt min.). @ -None done U/S interpreted by me (1pt. min.). @ -None done What testing was considered but not performed or refused? (CT, X-rays, U/S, labs)? Why? @ -None What meds were considered but not given or refused? Why? @ -None Did you discuss the management of the patient with other professionals (professionals i.e. , PA, DOOR LINER, lab, RT, psych nurse, psychiatric social worker supervisor, fire prevention research engineer, teacher, intelligence officer basic, watch case polisher)? Give summary @ -No Was smoking cessation discussed for >3mins.? @ -No Was critical care preformed (if so, how long)? @ -No Were there social determinants of health that impacted care today? How? (Homelessness, low income, unemployed, alcoholism, drug addiction, transportation, low edu. Level, literacy, decrease access to med. care, fpc, rehab)? @ -No Was there de-escalation of care discussed even if they declined (Discuss DNR or withdrawal of care, Hospice)? DNR status @ -No What co-morbidities impacted this encounter? (DM, HTN, Smoking, COPD, CAD, Cancer, CVA, ARF, Chemo, Hep., AIDS, mental health diagnosis, sleep apnea, morbid obesity)? @ -None Was patient admitted / discharged? Hospital course, mention meds given and route, prescriptions, significant lab abnormalities, going to OR and other pertinent info. @ -Discharge patient has notable spasms, straightening of his normal cervical curvature. Patient was started on Flexeril continue anti-inflammatories gentle stretching, heat and ice as directed. Undiagnosed new problem with uncertain prognosis? @ -No Drug Therapy requiring intensive monitoring for toxicity (Heparin, Nitro, Insulin, Cardizem)? @ -No Were any procedures done? @ -No Diagnosis/symptom? @ -Cervical muscle spasm Acute, or Chronic, or Acute on Chronic? @ -Acute Uncomplicated (without systemic symptoms) or Complicated (systemic symptoms)? @ -Uncomplicated Side effects of treatment? @ -No Exacerbation, Progression, or Severe Exacerbation? @ -No Poses a threat to life or bodily function? How? (Chest pain, [place], [place], pneumonia, PE, COPD, DKA, ARF, appy, cholecystitis, CVA, Diverticulitis, Homicidal, Suicidal, threat to staff... and all critical care pts) @ -No Disposition Clinical Impression: Trapezius muscle spasm, Neck pain, Back pain Disposition: HOME SELF-CARE Condition: Stable Instructions (If sedation given, give patient instructions): Spasmodic Torticollis (ED) Additional Instructions: Please return to the Emergency Department if symptoms worsen or any other concerns. Prescriptions: Cyclobenzaprine [Flexeril] 10 mg PO TID PRN #15 tab PRN Reason: Muscle Spasm Ibuprofen [Motrin] 600 mg PO Q8HR PRN #20 tab PRN Reason: Pain Is patient prescribed a controlled substance at d/c from ED?: No Referrals: Nonstaff,Physician [Primary Care Provider] - 1-2 days Time of Disposition: 07:27
[2023-04-10 06:42] VITALS: RESP 18
--- NOTE | 2023-04-10 07:21 | XR ---
EXAMINATION TYPE: XR cervical spine comp DATE OF EXAM: 04/10/2023 COMPARISON: None HISTORY: 27-year-old male pain TECHNIQUE: 5 views FINDINGS: No predental space widening or prevertebral soft tissue swelling. Straightening of the normal cervica l lordosis. Preserved alignment. Disc spaces are also maintained. No significant bony neuroforaminal narrowing on either side. Normal odontoid view. IMPRESSION: Straightening of the normal cervical lordosis could be positional or due to muscle spasm. Otherwise, no specific radiographic abnormality seen.
--- NOTE | 2023-04-10 07:22 | XR ---
EXAMINATION TYPE: XR shoulder complete 3 views LT, XR lumbar spine 3V DATE OF EXAM: 04/10/2023 Comparison: None Clinical History: 27-year-old male pain Findings: Left shoulder: AC joint appears congruent and intact. Subacromial space is preserved. No tendinous or bursal calcifi cations. No acute fracture, subluxation, or dislocation. Lumbar spine: 5 lumbar type vertebral bodies. Vertebral body heights and disc interspaces are maintained. Alignment is preserved. Impression: Left shoulder and lumbar spine without acute osseous abnormality seen.
[2023-04-10 07:56] VITALS: BP 116/77; PULSE 76
== END 2023-04-10 07:59 | disposition home or self-care (01) ==
LOC: EC 05:25
DX: S62.172A Displaced fracture of trapezium [larger multangular], left wrist, initial encounter for closed fracture (principal); F17.290 Nicotine dependence, other tobacco product, uncomplicated; F12.90 Cannabis use, unspecified, uncomplicated; X58.XXXA Exposure to other specified factors, initial encounter
CPT/HCPCS: 72050; 72100; 99283

== ENCOUNTER 2024-02-17 21:53 | Emergency (ER) | payer BC ==
--- NOTE | 2024-02-17 22:08 | ED ---
Chest Pain HPI - General Source: patient Mode of arrival: ambulatory <Maxim Neumann - Last Filed: 02/17/24 22:08> - General Source: patient, RN notes reviewed, old records reviewed <Maksim Gallo - Last Filed: 02/18/24 03:44> - General Chief Complaint: Chest Pain Stated Complaint: Chest Pain,Sob Time Seen by Provider: 02/17/24 22:00 - History of Present Illness Initial Comments: 28-year-old male presents to the ED with complaints of chest pain with associated shortness of breath onset earlier today. Pain is intermittent in nature. Pain affects the middle of his chest. Pain does not radiate. Also reports that when pain occurs he has [id number] in bilateral hands. No associated diaphoresis or nausea or vomiting. (Maxim Neumann) Patient is a 28-year-old male who presents emergency department with chest pain that is intermittent, starting at 3 PM. Does have a significant history of anxiety. No cardiac history. Has experienced this pain in the past as well. Currently is asymptomatic when I evaluated the patient. He had some shortness of breath with it earlier as well. He has some paresthesias in the hands when it occurs as well. No diaphoresis. No radiation. No nausea or vomiting. Presents for further evaluation. Originally seen as a quick note. I evaluated patient after workup was completed in a hallway bed. (Maksim Gallo) - Related Data Home Medications Medication Instructions Recorded Confirmed Ibuprofen [Motrin Ib] 800 mg PO Q8H PRN 06/15/21 06/15/21 Previous Rx's Medication Instructions Recorded Doxycycline Hyclate 100 mg PO BID 7 Days #14 tab 11/05/21 Levofloxacin 0.5% Ophth Soln 2 drop RIGHT EYE Q3-4H 5 Days #5 ml 05/08/22 [Quixin Ophth Soln] Cyclobenzaprine [Flexeril] 10 mg PO TID PRN #15 tab 04/10/23 Ibuprofen [Motrin] 600 mg PO Q8HR PRN #20 tab 04/10/23 Allergies Allergy/AdvReac Type Severity Reaction Status Date / Time No Known Allergies Allergy Verified 02/17/24 21:59 Review of Systems ROS Other: All systems not noted in ROS Statement are negative. <Maxim Neumann - Last Filed: 02/17/24 22:08> ROS Other: All systems not noted in ROS Statement are negative. <Maksim Gallo - Last Filed: 02/18/24 03:44> ROS Statement: Those systems with pertinent positive or pertinent negative responses have been documented in the HPI. Review of Systems: CONST: Denies fever EYES: Denies blurry vision ENT: Denies nasal congestion C/V: Denies Chest pain RESP: Denies shortness of breath GI: Denies abdominal pain : Denies dysuria SKIN: Denies rash. MSK: Denies joint pain. NEURO: Denies headache (Maksim Gallo) EKG Findings - EKG Comments: EKG Findings:: 12-lead Electrocardiogram Interpretation Note. EKG was reviewed and interpreted by myself. 12-lead ECG performed at 2204 is interpreted by me as revealing normal sinus rhythm at a rate of 80 beats per minute. Whitmer is normal. RI interval is 132 ms, QRS duration is 90 ms, QTc is 374 ms. Slightly elevated J-point elevation throughout which is chronic compared to prior EKGs.. There were no ST or T wave abnormalities to suggest myocardial ischemia or injury. R wave progression across the precordium was satisfactory. By my interpretation this EKG is non-diagnostic for acute ischemia. 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 Past Psychological History: No Psychological Hx Reported, ADD/ADHD Smoking Status: Current every day smoker, Vaper Past Alcohol Use History: Rare Past Drug Use History: None Reported, Marijuana <Maxim Neumann - Last Filed: 02/17/24 22:08> General Exam <Maxim Neumann - Last Filed: 02/17/24 22:08> <Maksim Gallo - Last Filed: 02/18/24 03:44> - General Exam Comments Initial Comments: Visual Physical Exam Vital signs reviewed General: Well-appearing, nontoxic, no acute distress. Head: Normocephalic, atraumatic Eyes: PERRLA, EOMI ENT: Airway patent Chest: Nonlabored breathing Skin: No visual rash, normal skin tone Neuro: Alert and oriented 3 Musculoskeletal: No gross abnormalities (Maxim Neumann) General: Appears in no acute distress. HEAD: Normal with no signs of head trauma. EYES: PERRLA, EOMI, conjunctiva normal, no discharge. ENT: Hearing grossly intact, normal oropharynx. RESPIRATORY: Clear breath sounds bilaterally. No wheezes, rales, or rhonchi. C/V: Regular rate and rhythm. S1 and S2 auscultated, no edema, peripheral pulses 2+ and intact throughout. Chest pain reproducible on palpation. ABD: Abd is soft, nontender, nondistended EXT: Normal range of motion, no obvious deformity SKIN: No rashes or lesions observed on exposed skin. NEURO: Alert and oriented x 4. (Maksim Gallo) Course Vital Signs 02/17/24 02/18/24 21:55 00:34 Temperature 98.3 F 97.4 F L Pulse Rate 85 64 Respiratory 18 15 Rate Blood Pressure 160/88 123/80 O2 Sat by Pulse 97 97 Oximetry Chest Pain MDM <Maxim Neumann - Last Filed: 02/17/24 22:08> <Maksim Gallo - Last Filed: 02/18/24 03:44> - MDM Quicknote portion performed. Signed Maxim Neumann PA-C (Maxim Neumann) Was pt. sent in by a medical professional or institution ([facility], HOME MORTGAGE DISCLOSURE ACT SPECIALIST, urgent care, hospital, or senior care...) When possible be specific @ -No Did you speak to anyone other than the patient for history (EMS, parent, family, police, friend...)? What history was obtained from this source @ -No Did you review nursing and triage notes (agree or disagree)? Why? @ -I reviewed and agree with nursing and triage notes Were old charts reviewed (outside hosp., previous admission, EMS record, old EKG, old radiological studies, urgent care reports/EKG's, senior care records)? Report findings @ -Old charts reviewed Differential Diagnosis (chest pain, altered mental status, abdominal pain women, abdominal pain men, vaginal bleeding, weakness, fever, dyspnea, syncope, headache, dizziness, GI bleed, back pain, seizure, CVA, palpatations, mental health, musculoskeletal)? @ -Differential Chest Pain: Stable Angina, Unstable Angina, STEMI, NSTEMI Aortic Dissection, Pneumothorax, Musculoskeletal, Esophageal Spasm GERD, Cholecystitis, Pancreatitis, Zoster, this is not meant to be an all-inclusive list. EKG interpreted by me (3pts min.). @ -As above X-rays interpreted by me (1pt min.). @ -X-ray reveals no obvious acute cardiopulmonary process. CT interpreted by me (1pt min.). @ -None done U/S interpreted by me (1pt. min.). @ -None done What testing was considered but not performed or refused? (CT, X-rays, U/S, labs)? Why? @ -I did offer a second troponin however patient declined and would like to go home. What meds were considered but not given or refused? Why? @ -None Did you discuss the management of the patient with other professionals (professionals i.e. , PA, HOME MORTGAGE DISCLOSURE ACT SPECIALIST, lab, RT, psych nurse, social services specialist, printer's assistant, teacher, district fire management officer, rn case management)? Give summary @ -No Was smoking cessation discussed for >3mins.? @ -No Was critical care preformed (if so, how long)? @ -No Were there social determinants of health that impacted care today? How? (Homelessness, low income, unemployed, alcoholism, drug addiction, transportation, low edu. Level, literacy, decrease access to med. care, [facility], rehab)? @ -No Was there de-escalation of care discussed even if they declined (Discuss DNR or withdrawal of care, Hospice)? DNR status @ -No What co-morbidities impacted this encounter? (DM, HTN, Smoking, COPD, CAD, Cancer, CVA, ARF, Chemo, Hep., AIDS, mental health diagnosis, sleep apnea, morbid obesity)? @ -Anxiety Was patient admitted / discharged? Hospital course, mention meds given and route, prescriptions, significant lab abnormalities, going to OR and other pertinent info. @ -Patient presents with atypical chest pain which seems to be chest wall pain or anxiety related. Has a history of this. Currently has no symptoms. Vital signs are within acceptable limits. Workup completed while patient was in triage as a quick note was remarkable for an undetectable troponin. Remainder the labs unremarkable. EKG shows no signs of acute ischemia. Chest x-ray unremarkable. Vital signs within acceptable limits. I discussed results with patient. I did offer a second troponin at this time however he declines. We also discussed possible of observation which was declined as well. I believe this is reasonable as he is currently asymptomatic, with atypical symptoms that seem to be more chest wall pain related or anxiety related. Patient will be given a dose of Ativan as well as ibuprofen prior to discharge. Strict return precautions discussed. Patient was in agreement this plan. Heart score is low. I instructed the patient to follow up with their PCP in the next 1-3 days. I explained that the patient should return to the emergency department if they experience any worsening symptoms. Strict return precautions were discussed with the patient. The patient expressed understanding of these instructions. I answered all questions that the patient had. The patient was discharged home in good condition with their prescriptions and follow up information. Undiagnosed new problem with uncertain prognosis? @ -No Drug Therapy requiring intensive monitoring for toxicity (Heparin, Nitro, Insulin, Cardizem)? @ -No Were any procedures done? @ -No Diagnosis/symptom? @ -Chest wall pain, anxiety, atypical chest pain Acute, or Chronic, or Acute on Chronic? @ -Acute Uncomplicated (without systemic symptoms) or Complicated (systemic symptoms)? @ -Uncomplicated Side effects of treatment? @ -No Exacerbation, Progression, or Severe Exacerbation? @ -No Poses a threat to life or bodily function? How? (Chest pain, [place], [place], pneumonia, PE, COPD, DKA, ARF, appy, cholecystitis, CVA, Diverticulitis, Homicidal, Suicidal, threat to staff... and all critical care pts) @ -Unlikely (Maksim Gallo) Disposition <Maxim Neumann - Last Filed: 02/17/24 22:08> Is patient prescribed a controlled substance at d/c from ED?: No Time of Disposition: 00:21 <Maksim Gallo - Last Filed: 02/18/24 03:44> Clinical Impression: Atypical chest pain, Anxiety, Chest wall pain Disposition: HOME SELF-CARE Condition: Good Instructions (If sedation given, give patient instructions): Chest Wall Pain (ED) Referrals: None,Stated [Primary Care Provider] - 1-2 days Forms: Area PCPs
[2024-02-17 22:31] LABS: Basophils % (A) 1 %; Eosinophils # (A) 0.1 k/uL (0-0.7); Eosinophils % (A) 1 %; HCT 46.3 % (39.0-53.0); HGB 15.7 gm/dL (13.0-17.5); Lymphocytes # (A) 2.9 k/uL (1.0-4.8); Lymphocytes % (A) 37 %; MCHC 33.9 g/dL (31.0-37.0); MCV 88.5 fL (80.0-100.0); Mean Platelet Volume 7.6; Monocytes # (A) 0.5 k/uL (0-1.0); Monocytes % (A) 6 %; Neutrophils # (A) 4.1 k/uL (1.3-7.7); Neutrophils % (A) 53 %; Platelet Count 284 k/uL (150-450); RBC 5.23 m/uL (4.30-5.90); RDW 12.3 % (11.5-15.5); WBC 7.7 k/uL (3.8-10.6)
[2024-02-17 22:38] LABS: ALT 18 U/L (4-49); AST 26 U/L (17-59); African American GFR (CKD) >90 (>60 ml/min/1.73 sqM); Alkaline Phosphatase 78 U/L (38-126); Anion Gap 9 mmol/L; Blood Urea Nitrogen 12 mg/dL (9-20); Calcium 11.2 mg/dL (8.4-10.2); Carbon Dioxide 23 mmol/L (22-30); Chloride 107 mmol/L (98-107); Glucose 109 mg/dL (74-99); Magnesium 1.8 mg/dL (1.6-2.3); Non-African American GFR(CKD) >90 (>60 ml/min/1.73 sqM); Sodium 139 mmol/L (137-145); Total Bilirubin 0.6 mg/dL (0.2-1.3); Total Protein 7.6 g/dL (6.3-8.2)
[2024-02-17 23:07] LABS: Prothrombin Time 11.3 sec (10.0-12.5)
--- NOTE | 2024-02-17 23:43 | XR ---
EXAM: XR Chest, 2 Views CLINICAL HISTORY: ITS.REASON XR Reason: Chest Pain TECHNIQUE: Frontal and lateral views of the chest. COMPARISON: No relevant prior studies available. FINDINGS: Lungs: Unremarkable. No consolidation. Pleural space: Unremarkable. No pneumothorax. Heart: Unremarkable. No cardiomegaly. Mediastinum: Unremarkable. Normal mediastinal contour. Bones/joints: Unremarkable. No acute fracture. IMPRESSION: Normal chest x-rays.
[2024-02-18] MEDS: LORazepam 0.5 MG TAB PO STA (00:29)
[2024-02-18] MEDS: IBUPROFEN 800 MG TAB PO STA (00:29)
[2024-02-18 00:48] VITALS: BP 123/80; PULSE 64; RESP 15; TEMP 97.4
== END 2024-02-18 00:34 | disposition home or self-care (01) ==
LOC: EC 21:53
DX: R07.89 Other chest pain (principal); F41.9 Anxiety disorder, unspecified; F17.290 Nicotine dependence, other tobacco product, uncomplicated; F12.90 Cannabis use, unspecified, uncomplicated
CPT/HCPCS: 36415; 71046; 80053; 83735; 84484; 85025; 85610; 85730; 93005; 99285

== ENCOUNTER 2024-06-24 22:10 | Emergency (ER) | payer BC ==
[2024-06-24 22:28] VITALS: RESP 20; TEMP 98.1
[2024-06-24 22:55] LABS: Appearance,Urine Clear (Clear); Bilirubin,Urine Negative (Negative); Blood,Urine Negative (Negative); Color,Urine Colorless; Glucose,Urine (UA) Negative (Negative); Ketones,Urine Negative (Negative); Leukocyte Esterase,Urine Negative (Negative); Nitrite,Urine Negative (Negative); Protein,Urine Negative (Negative); Specific Gravity,Urine 1.006 (1.001-1.035); Urobilinogen,Urine <2.0 mg/dL (<2.0)
--- NOTE | 2024-06-24 23:08 | ED ---
Male Urogenital HPI - General Chief complaint: Urogenital Stated complaint: Lower ABD Pain Time Seen by Provider: 06/24/24 22:34 Source: patient, RN notes reviewed Mode of arrival: ambulatory Limitations: no limitations - History of Present Illness Initial comments: This is a 28-year-old male who presents to the emergency department for pelvic pain. Reports concern for pain in the perineal region over the last few days that make it painful to sit down. Denies any pain in the testicles. He has noted some clear penile discharge. States that there is concern for possible STD exposure. He was tested a few months ago due to similar symptoms and was negative. States that sometimes he feels like he has difficulty urinating. Denies any burning with urination. Denies any history of STDs in the past. - Related Data Home Medications Medication Instructions Recorded Confirmed Ibuprofen [Motrin Ib] 800 mg PO Q8H PRN 06/15/21 06/15/21 Previous Rx's Medication Instructions Recorded RX: Doxycycline Hyclate 100 mg PO BID 7 Days #14 tab 11/05/21 RX: Levofloxacin 0.5% Ophth Soln 2 drop RIGHT EYE Q3-4H 5 Days #5 ml 05/08/22 [Quixin Ophth Soln] Cyclobenzaprine [Flexeril] 10 mg PO TID PRN #15 tab 04/10/23 RX: Ibuprofen [Motrin] 600 mg PO Q8HR PRN #20 tab 04/10/23 RX: Doxycycline Hyclate 100 mg PO BID 10 Days #20 tab 06/24/24 Allergies Allergy/AdvReac Type Severity Reaction Status Date / Time No Known Allergies Allergy Verified 02/17/24 21:59 Review of Systems ROS Statement: Those systems with pertinent positive or pertinent negative responses have been documented in the HPI. ROS Other: All systems not noted in ROS Statement are negative. 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 Past Psychological History: No Psychological Hx Reported, ADD/ADHD Smoking Status: Current every day smoker, Vaper Past Alcohol Use History: Rare Past Drug Use History: Marijuana General Exam Limitations: no limitations General appearance: alert, in no apparent distress Head exam: Present: atraumatic, normocephalic, normal inspection Respiratory exam: Present: normal lung sounds bilaterally. Absent: respiratory distress, wheezes, rales, rhonchi, stridor Cardiovascular Exam: Present: regular rate, normal rhythm, normal heart sounds. Absent: systolic murmur, diastolic murmur, rubs, gallop, clicks Neurological exam: Present: alert, oriented X3, CN II-XII intact Psychiatric exam: Present: normal affect, normal mood Skin exam: Present: warm, dry, intact, normal color. Absent: rash Course Vital Signs 06/24/24 06/24/24 22:26 23:25 Temperature 98.1 F Pulse Rate 117 H 99 Respiratory 20 20 Rate Blood Pressure 191/98 123/76 O2 Sat by Pulse 99 98 Oximetry Medical Decision Making - Medical Decision Making This is a 28 year old male who presents to the emergency department for pelvic pain. Was pt. sent in by a medical professional or institution? @ -No Did you speak to anyone other than the patient for history? @ -No Did you review nursing and triage notes? @ -Yes, and I agree, it is accurate with regards to the patient's symptoms. Were old charts reviewed? @ -No Differential Diagnosis? @ -Differential Pelvic Pain: UTI, STI, prostatitis, this is not meant to be an all-inclusive list. EKG interpreted by me (3pts min.)? @ -Not obtained X-rays interpreted by me (1pt min.)? @ -Not obtained CT interpreted by me (1pt min.)? @ -Not obtained U/S interpreted by me (1pt. min.)? @ -Not obtained What testing was considered but not performed? (CT, X-rays, U/S, labs)? Why? @ -I did offer further testing with imaging such as a CT scan of the abdomen/pelvis or ultrasound due to the patient's level discomfort, however he declined. What meds were considered but not given? Why? @ -None Did you discuss the management of the patient with other professionals? @ -No Did you reconcile home meds? @ -No Was smoking cessation discussed for >3mins.? @ -No Was critical care preformed (if so, how long)? @ -No Were there social determinants of health that impacted care today? How? (Homelessness, low income, unemployed, alcoholism, drug addiction, transportation, low edu. Level, literacy, decrease access to med. care, long term, rehab)? @ -No Was there de-escalation of care discussed even if they declined? (Discuss DNR or withdrawal of care, Hospice)? @ -No What co-morbidities impacted this encounter? (DM, HTN, Smoking, COPD, CAD, Cancer, CVA, Hep., AIDS, mental health diagnosis, sleep apnea, morbid obesity)? @ -None Was patient admitted / discharged? @ -Discharged. Urinalysis negative for infection. Gonorrhea and Chlamydia te sting ordered with results pending at the time of discharge. I did offer further testing with imaging such as an ultrasound or a CT scan due to the level of discomfort, however patient declined. States that he would like to be treated for possible STDs and be discharged home. IM Rocephin administered in the emergency department and a prescription for doxycycline was provided. Advised ibuprofen and Tylenol as needed for pain relief. Patient discharged home in stable condition. Case discussed with ED attending Dr. Turner. Return precautions reviewed in depth, the patient is instructed to return to the emergency department with any new, worsening, or concerning symptoms. Patient verbalized understanding. Undiagnosed new problem with uncertain prognosis? @ -None Drug Therapy requiring intensive monitoring for toxicity (Heparin, Nitro, Insulin, Cardizem)? @ -None Were any procedures done? @ -None Diagnosis/symptom? @ -Pelvic pain, STI exposure Acute, or Chronic, or Acute on Chronic? @ -Acute Uncomplicated (without systemic symptoms) or Complicated (systemic symptoms)? @ -Uncomplicated Side effects of treatment? @ -None Exacerbation, Progression, or Severe Exacerbation] @ -Not applicable Poses a threat to life or bodily function? @ -No - Lab Data Lab Results 06/24/24 Range/Units 22:47 Urine Color Colorless Urine Appearance Clear (Clear) Urine pH 6.0 (5.0-8.0) Ur Specific Avis 1.006 (1.001-1.035) Urine Protein Negative (Negative) Urine Glucose (UA) Negative (Negative) Urine Ketones Negative (Negative) Urine Blood Negative (Negative) Urine Nitrite Negative (Negative) Urine Bilirubin Negative (Negative) Urine Urobilinogen <2.0 (<2.0) mg/dL Ur Leukocyte Esterase Negative (Negative) Disposition Clinical Impression: Pelvic pain, Possible exposure to STD Disposition: HOME SELF-CARE Instructions (If sedation given, give patient instructions): Pelvic Pain in Men (ED) Additional Instructions: Return to the emergency department with any new, worsening, or concerning symptoms. Take the antibiotic as prescribed for 10 days. Follow up with your primary care provider in 1-2 days. Prescriptions: RX: Doxycycline Hyclate 100 mg PO BID 10 Days #20 tab Is patient prescribed a controlled substance at d/c from ED?: No Referrals: None,Stated [Primary Care Provider] - 1-2 days Time of Disposition: 23:08
[2024-06-24] MEDS: cefTRIAXone 1,000 MG VIAL (IM USE) IM STA (23:17)
[2024-06-24] MEDS: DOXYCYCLINE 100 MG CAP PO STA (23:17)
[2024-06-24 23:31] VITALS: BP 123/76; PULSE 99
[2024-06-25 12:28] LABS: C. trachomatis,PCR Negative (Negative)
[2024-06-25 12:41] LABS: N. gonorrhoeae,PCR Negative (Negative)
== END 2024-06-24 23:43 | disposition home or self-care (01) ==
LOC: EC 22:10
CPT/HCPCS: 81003; 87491; 87591; 96372; 99284

== ENCOUNTER → 2025-04-14 | Outpatient (CLI) | payer BC ==
--- NOTE | 2025-04-14 11:17 | US ---
EXAMINATION TYPE: US mass soft tissue chest/back DATE OF EXAM: 04/14/2025 COMPARISON: NONE CLINICAL INDICATION: Male, 29 years old with history of R22.2 LOCALIZED SWELLING, MASS AND LUMP, TRUN K; lump on right clavicle x a couple months. Not painful per pt TECHNIQUE: Area of concern scanned FINDINGS: [employer] notes: Hypoechoic area with fatty hilum seen measuring 0.5 x 0.5 x 0.3 cm seen in area of concern. IMPRESSION: Unclear right images depict a prominent but nonenlarged 5 mm lymph node at the right clav icular palpable site versus focal spurring and degenerative change relating to the sternoclavicular j oint. Clinically correlate. Either follow-up ultrasound or further evaluation with CT. [facility], , 04/14/2025 11:14 AM
== END | disposition home or self-care (01) ==
LOC: RADUSWWP 07:18
PROVIDERS: ATTEND Family Medicine
DX: R22.2 Localized swelling, mass and lump, trunk (principal)